=== PATIENT | female | born 1980 | race African-American/Black ===

== ENCOUNTER 2017-02-28 23:41 | Emergency (ER) | payer SELFPAY ==
[~2017-02-28] VITALS: Ht 162.6 cm; Wt 71.0 kg
[2017-02-28 23:43] VITALS: BP 180/111; PULSE 71; RESP 16; TEMP 98.6; O2SAT 100
[2017-03-01 00:47] VITALS: BP 147/89; PULSE 63; RESP 14; TEMP 98.9; O2SAT 100
[2017-03-01 00:58] VITALS: PULSE 71; RESP 16; O2SAT 100
--- NOTE | 2017-03-01 01:08 | RADRPT ---
EXAM DATE/TIME: 03/01/2017 01:01 [place] COMPARISON: No previous studies available for comparison. INDICATIONS : Chest pain, short of breath. MEDICAL HISTORY : None. SURGICAL HISTORY : None. ENCOUNTER: Initial ACUITY: 1 day PAIN SCORE: 0/10 LOCATION: Bilateral chest FINDINGS: Portable AP view of the chest demonstrates a normal-sized cardiac silhouette. No effusion, consolidat ion, or pneumothorax is visualized. The bones and soft tissues demonstrate no acute abnormality. CONCLUSION: No acute cardiopulmonary abnormality is identified. Jeison Brennan MD on March 01, 2017 at 1:06 Board Certified Radiologist. This report was verified electronically.
[2017-03-01 01:25] LABS: AUTOMATED NEUTROPHIL # 3.9 TH/MM3 (1.8-7.7); BASOPHIL % 0.4 % (0.0-2.0); EOSINOPHIL # 0.1 TH/MM3 (0-0.4); EOSINOPHIL % 1.5 % (0.0-4.0); HEMATOCRIT 36.5 % (35.0-46.0); HEMO FLAGS DIFF FINAL; LYMPH % 34.1 % (9.0-44.0); LYMPHOCYTE # 2.4 TH/MM3 (1.0-4.8); MEAN CELL VOLUME 85.2 FL (80.0-100.0); MEAN CORPUSCULAR HEMOGLOBIN 27.9 PG (27.0-34.0); MEAN CORPUSCULAR HGB CONC 32.8 % (32.0-36.0); MONO % 7.3 % (0.0-8.0); NEUT % 56.7 % (16.0-70.0); PLATELET COUNT 216 TH/MM3 (150-450); RED BLOOD COUNT 4.29 MIL/MM3 (4.00-5.30); RED CELL DISTRIBUTION WIDTH 15.8 % (11.6-17.2); WHITE BLOOD COUNT 6.9 TH/MM3 (4.0-11.0)
[2017-03-01 01:39] LABS: APTT (PATIENT) 30.4 SEC (24.3-30.1); PROTHROMBIN TIME - PATIENT 10.5 SEC (9.8-11.6)
[2017-03-01 01:40] LABS: ALT (GPT) 15 U/L (10-53); ANION GAP 7 MEQ/L (5-15); AST (GOT) 12 U/L (15-37); BICARBONATE 27.5 MEQ/L (21.0-32.0); BLOOD UREA NITROGEN 8 MG/DL (7-18); CHLORIDE 108 MEQ/L (98-107); GLOMERULAR FILTRATION RATE 72 ML/MIN (>89); MAGNESIUM 2.1 MG/DL (1.5-2.5); POTASSIUM 4.5 MEQ/L (3.5-5.1); SODIUM (NA) 142 MEQ/L (136-145)
[2017-03-01 01:51] LABS: ALKALINE PHOSPHATASE 55 U/L (45-117); TOTAL BILIRUBIN ADULT 0.3 MG/DL (0.2-1.0)
[2017-03-01 01:52] LABS: CREATINE KINASE 95 U/L (26-192)
[2017-03-01 02:02] LABS: BLOOD, URINE NEG (NEG); COMMENT (UR) CULT NOT INDICATED; CULTURE IF INDICATED CULT NOT INDICATED; GLUCOSE,URINE NEG (NEG); KETONE, URINE NEG (NEG); MUCUS URINE FEW /lpf (OCC); NITRITE,URINE NEG (NEG); PH, URINE 6.5 (5.0-8.5); SQUAMOUS EPITHELIAL CELL URINE 2 /hpf (0-5); URINE COLOR YELLOW (YELLW/STRAW)
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
[2017-03-01] MEDS ORDERED: SODIUM CHLOR 0.9% 1000 ML INJ 1,000 ML IV ONE (02:45)
[2017-03-01] MEDS ORDERED: ONDANSETRON HCL 4 MG/2 ML VIAL IV PUSH ONE (02:45)
[2017-03-01] MEDS ORDERED: IBUPROFEN 400 MG TAB PO ONE (02:45)
[2017-03-01 03:21] VITALS: BP 131/88; PULSE 62; RESP 14; O2SAT 100
[2017-03-01] MEDS ORDERED: IBUP400T20 PO (03:23)
--- NOTE | 2017-03-01 16:46 | EKG ---
Date Performed: 03/01/2017 Time Performed: 00:18:37 PTAGE: 36 years EKG: Sinus rhythm WITH SINUS ARRHYTHMIA NORMAL ECG NO PREVIOUS TRACING DOCTOR: Jennifer Rehman Interpretating Date/Time 03/01/2017 16:41:28
== END 2017-03-01 03:40 | disposition home or self-care (01) ==
LOC: NEPE 23:41
DX: R07.89 Other chest pain (principal); B34.9 Viral infection, unspecified; R06.02 Shortness of breath; R11.0 Nausea; I10 Essential (primary) hypertension; R01.1 Cardiac murmur, unspecified; I49.8 Other specified cardiac arrhythmias; Z72.0 Tobacco use
CPT/HCPCS: 71010; 80053; 81001; 82550; 83690; 83735; 83880; 84443; 84484; 84703; 85025; 85379; 85610; 85730; 93005; 96361; 96374; 99285; J2405; J7030

== ENCOUNTER 2017-04-16 14:27 | Emergency (ER) | payer OTHER ==
[~2017-04-16] VITALS: Ht 170.2 cm; Wt 70.0 kg
[~2017-04-16 14:27] MED LIST: IBUP400T20 PO
[2017-04-16 14:49] VITALS: BP 131/91; PULSE 72; RESP 18; TEMP 98.3; O2SAT 97
[2017-04-16] MEDS ORDERED: TRAZ50TA12 PO (15:06)
[2017-04-16] MEDS ORDERED: SERT25TA83 PO (15:06)
[2017-04-16] MEDS ORDERED: CLON.5 PO (15:06)
[2017-04-16] MEDS ORDERED: RISP0.5T2 PO (15:06)
[2017-04-16 15:52] LABS: AUTOMATED NEUTROPHIL # 4.3 TH/MM3 (1.8-7.7); BASOPHIL % 0.6 % (0.0-2.0); EOSINOPHIL % 0.6 % (0.0-4.0); HEMATOCRIT 37.4 % (35.0-46.0); HEMO FLAGS DIFF FINAL; LYMPH % 30.4 % (9.0-44.0); LYMPHOCYTE # 2.1 TH/MM3 (1.0-4.8); MEAN CELL VOLUME 83.8 FL (80.0-100.0); MEAN CORPUSCULAR HEMOGLOBIN 27.4 PG (27.0-34.0); MEAN CORPUSCULAR HGB CONC 32.7 % (32.0-36.0); MONO % 6.8 % (0.0-8.0); NEUT % 61.6 % (16.0-70.0); PLATELET COUNT 267 TH/MM3 (150-450); RED BLOOD COUNT 4.47 MIL/MM3 (4.00-5.30); RED CELL DISTRIBUTION WIDTH 17.7 % (11.6-17.2); WHITE BLOOD COUNT 7.1 TH/MM3 (4.0-11.0)
[2017-04-16 16:12] LABS: ALKALINE PHOSPHATASE 60 U/L (45-117); TOTAL BILIRUBIN ADULT 0.6 MG/DL (0.2-1.0)
[2017-04-16 16:27] LABS: ALT (GPT) 18 U/L (10-53); ANION GAP 4 MEQ/L (5-15); AST (GOT) 30 U/L (15-37); BICARBONATE 25.7 MEQ/L (21.0-32.0); BLOOD UREA NITROGEN 13 MG/DL (7-18); CHLORIDE 107 MEQ/L (98-107); GLOMERULAR FILTRATION RATE 77 ML/MIN (>89); POTASSIUM 4.4 MEQ/L (3.5-5.1); SODIUM (NA) 137 MEQ/L (136-145)
[2017-04-16 16:29] LABS: ACETAMINOPHEN LESS THAN 2.0 MCG/ML (10.0-30.0); ALCOHOL LESS THAN 3 MG/DL (0-5)
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
[2017-04-17 06:17] VITALS: BP 105/58; PULSE 61; RESP 18
[2017-04-17 13:45] VITALS: BP 133/62; PULSE 89; RESP 18; O2SAT 100
[2017-04-17 17:53] VITALS: BP 130/89; PULSE 72; RESP 18; O2SAT 99
== END 2017-04-17 22:39 ==
LOC: NEPD 14:27 → NEPJ 04-17 22:39
DX: F31.9 Bipolar disorder, unspecified (principal); Z72.0 Tobacco use; Z79.899 Other long term (current) drug therapy
CPT/HCPCS: 80053; 80307; 84703; 85025; 99285

== ENCOUNTER 2017-05-16 18:05 | Emergency (ER) | payer SELFPAY ==
[~2017-05-16] VITALS: Ht 165.1 cm; Wt 65.0 kg
[~2017-05-16 18:05] MED LIST changes: +CLON.5 PO; -IBUP400T20 PO; +RISP0.5T2 PO; +SERT25TA83 PO; +TRAZ50TA12 PO
[2017-05-16 19:12] VITALS: BP 179/93; PULSE 66; RESP 20; TEMP 99.1; O2SAT 98
[2017-05-16] MEDS ORDERED: LISI10TA3 PO (19:15)
== END 2017-05-16 19:53 | disposition left against medical advice (07) ==
LOC: NEDAMB 18:05
DX: R10.9 Unspecified abdominal pain (principal); Z53.21 Procedure and treatment not carried out due to patient leaving prior to being seen by health care provider
CPT/HCPCS: 99281